=== PATIENT | female | born 1980 | race Caucasian/White ===

== ENCOUNTER 2024-01-11 10:42 | Emergency (ER) | payer OTHER ==
[2024-01-11 10:50] VITALS: BP 147/90; PULSE 66; RESP 18; TEMP 99.3; BMI 27.1
[2024-01-11] MEDS ORDERED: KETOROLAC TROMETHAMINE 15 MG/ML VIAL ONE (11:22)
[2024-01-11] MEDS: KETOROLAC TROMETHAMINE 30 MG/1 ML VIAL IVPUSH ONE (11:33)
[2024-01-11 11:39] LABS: HEMATOCRIT 42.1 % (32.4-45.2); HEMOGLOBIN 13.9 G/dL (10.7-15.3); MCH 31.7 pg (25.7-33.7); MEAN PLT VOLUME 7.6 fl (7.5-11.1); PLATELET COUNT 244.3 10^3/uL (134-434); RBC 4.39 10^6/uL (3.60-5.2); RDW 12.6 % (11.6-15.6); WHITE BLOOD COUNT 9.9 10^3/uL (4.0-10.8)
[2024-01-11 12:03] LABS: INR 0.98 (0.83-1.09); PROTHROMBIN TIME (PATIENT) 11.2 SEC (9.7-13.0)
[2024-01-11 12:05] LABS: ACTIVATED PTT 31.2 SECONDS (25.2-36.5)
[2024-01-11 12:14] LABS: ALBUMIN 4.6 g/dl (3.4-5.0); CREATININE 0.6 mg/dl (0.6-1.3); MAGNESIUM 1.6 mg/dL (1.8-2.4); PHOSPHOROUS 2.6 (2.5-4.9); TOT PROT 7.2 g/dl (6.4-8.2)
[2024-01-11 12:52] LABS: PLATELET ESTIMATE ADEQUATE
[2024-01-11] MEDS: MAGNESIUM OXIDE 400 MG TABLET (FP) PO ONE (14:14)
== END 2024-01-11 14:24 | disposition home or self-care (01) ==
LOC: FER 10:42
PROC: 3E0133Z Introduction of Anti-inflammatory into Subcutaneous Tissue, Percutaneous Approach (ICD-10-PCS; principal; 2024-01-11)
DX: M79.662 Pain in left lower leg (principal); M79.89 Other specified soft tissue disorders
CPT/HCPCS: 36415; 80053; 83735; 84100; 84703; 85027; 85610; 85730; 93971-TC; 99284-25

== ENCOUNTER 2024-07-20 11:02 | Emergency (ER) | payer OTHER ==
[2024-07-20 11:10] VITALS: BP 133/89; PULSE 68; RESP 19; TEMP 98.2; BMI 27.3
== END 2024-07-20 12:07 | disposition home or self-care (01) ==
LOC: FER 11:02
DX: R42 Dizziness and giddiness (principal); R06.02 Shortness of breath; R07.9 Chest pain, unspecified
CPT/HCPCS: 82962; 93005; 99284-25

== ENCOUNTER 2024-08-02 11:48 | Emergency (ER) | payer OTHER ==
[2024-08-02 11:55] VITALS: BP 148/90; PULSE 83; RESP 18; TEMP 98.2; BMI 26.4
[2024-08-02] MEDS: MECLIZINE HCL 25 MG TABLET (FP) PO ONE (12:47)
[2024-08-02 13:20] LABS: HEMATOCRIT 41.5 % (32.4-45.2); HEMOGLOBIN 14.4 G/dL (10.7-15.3); MCH 32.5 pg (25.7-33.7); MCHC 34.7 g/dl (32.0-36.0); MEAN CELL VOLUME 93.7 fl (80-96); MEAN PLT VOLUME 8.1 fl (7.5-11.1); PLATELET COUNT 254.5 10^3/uL (134-434); RBC 4.43 10^6/uL (3.60-5.2); RDW 12.3 % (11.6-15.6)
[2024-08-02 13:38] LABS: ALBUMIN 4.4 g/dl (3.4-5.0); ALK PHOS 55 U/L (45-117); ANION GAP 7 mmol/L (4-13); BILIRUBIN,TOTAL 0.7 mg/dl (0.2-1); CHLORIDE 108 mmol/L (98-107); CO2 24 mmol/L (21-32); CREATININE 0.7 mg/dl (0.6-1.3); GLUCOSE,RANDOM 98 mg/dl (74-106); POTASSIUM 4.2 mmol/L (3.5-5.1); SGOT/AST 15 U/L (15-37); SGPT/ALT 14 U/L (7-52); SODIUM 139 mmol/L (136-145); TOT PROT 6.8 g/dl (6.4-8.2)
[2024-08-02 14:22] LABS: PLATELET ESTIMATE ADEQUATE
== END 2024-08-02 14:36 | disposition home or self-care (01) ==
LOC: FER 11:48
DX: R42 Dizziness and giddiness (principal); F41.9 Anxiety disorder, unspecified; Z20.822 Contact with and (suspected) exposure to COVID-19
CPT/HCPCS: 0241U-QW; 36415; 80053; 83735; 84484; 84703; 85027; 93005; 99284-25